=== PATIENT | male | born 1960 | race Caucasian/White ===

== ENCOUNTER 2021-12-22 06:30 | Day surgery (SDC) | payer BC, OTHER ==
[~2021-12-22] VITALS: Ht 177.8 cm; Wt 80.3 kg
[~2021-12-22 06:30] MED LIST: METF500 PO
--- NOTE | 2021-12-22 07:13 | NUR ---
History, Chart, Medications and Allergies reviewed before start of procedure. Patient confirms NPO status and agrees with scheduled surgery. Reports taking all of colon prep with clear results.
--- NOTE | 2021-12-22 07:18 | NUR ---
History, Chart, Medications and Allergies reviewed before start of procedure. Patient confirms NPO status and agrees with scheduled surgery. Patient States Post-Procedure ride home has been arranged with [facility].
--- NOTE | 2021-12-22 08:10 | NUR ---
12/22/21 0810 Enio Lai History, Chart, Medications and Allergies reviewed before start of procedure. Patient confirms NPO status and agrees with scheduled surgery. 3-LEAD EKG REVIEWED WITH PHYSICIAN PRIOR TO START OF PROCEDURE. MONITOR INTACT WITH CONTINUOUS PULSE OXIMETRY AND INTERMITTENT BP. PATIENT DETERMINED TO BE ASA APPROPRIATE FOR PROPOFOL SEDATION PRIOR TO START OF PROCEDURE BY DR. LOCO.
--- NOTE | 2021-12-22 09:35 | NUR ---
Discharge instructions reviewed with patient. Patient verbalizes understanding. Copy given to patient to take home. Patient States Post-Procedure ride home has been arranged. Ambulatory in [facility] Discharged via wheelchair to private car for ride home.
== END 2021-12-22 23:22 | disposition home or self-care (01) ==
LOC: ORSCMMR 06:30 → ORD 08:00 → ORSCMMR 08:00
PROVIDERS: Student in an Organized Health Care Education/Training Program
PROC: 0DBN8ZX Excision of Sigmoid Colon, Via Natural or Artificial Opening Endoscopic, Diagnostic (ICD-10-PCS; principal; 2021-12-22 08:00)
PROC: 0DBL8ZX Excision of Transverse Colon, Via Natural or Artificial Opening Endoscopic, Diagnostic (ICD-10-PCS; principal; 2021-12-22 08:00)
DX: Z12.11 Encounter for screening for malignant neoplasm of colon (principal); D12.3 Benign neoplasm of transverse colon; D12.5 Benign neoplasm of sigmoid colon; K64.4 Residual hemorrhoidal skin tags; E11.9 Type 2 diabetes mellitus without complications; Z87.891 Personal history of nicotine dependence; Z79.84 Long term (current) use of oral hypoglycemic drugs; Z79.899 Other long term (current) drug therapy
CPT/HCPCS: 82947; 88305; J2704; J7120

== ENCOUNTER 2023-08-09 08:38 | Day surgery (SDC) | payer SELFPAY ==
[~2023-08-09] VITALS: Ht 175.3 cm; Wt 92.1 kg
[~2023-08-09 08:38] MED LIST changes: -METF500 PO; +METF500C PO; +Prednisone50 MG PO; +Robaxin750 MG PO
[2023-08-09 10:17] VITALS: BP 129/84
== END 2023-08-09 10:30 | disposition home or self-care (01) ==
LOC: ORSCSDS 08:38
PROVIDERS: Student in an Organized Health Care Education/Training Program
PROC: 08RJ3JZ Replacement of Right Lens with Synthetic Substitute, Percutaneous Approach (ICD-10-PCS; principal; 2023-08-09 10:00)
DX: E11.36 Type 2 diabetes mellitus with diabetic cataract (principal); H25.11 Age-related nuclear cataract, right eye; E66.9 Obesity, unspecified; Z68.30 Body mass index [BMI] 30.0-30.9, adult; Z87.891 Personal history of nicotine dependence; Z79.84 Long term (current) use of oral hypoglycemic drugs; Z79.899 Other long term (current) drug therapy
CPT/HCPCS: 82947; J2250; J3010; J7040; V2632

== ENCOUNTER 2023-08-16 08:29 | Day surgery (SDC) | payer SELFPAY ==
[~2023-08-16] VITALS: Ht 177.8 cm; Wt 92.9 kg
--- NOTE | 2023-08-16 09:04 | NUR ---
08/16/23 0904 Delilah Olea AT 0901 JODIEET AT 0904
[2023-08-16 10:27] VITALS: BP 129/84
== END 2023-08-16 10:39 | disposition home or self-care (01) ==
LOC: ORSCSDS 08:29
PROVIDERS: Student in an Organized Health Care Education/Training Program
PROC: 08RK3JZ Replacement of Left Lens with Synthetic Substitute, Percutaneous Approach (ICD-10-PCS; principal; 2023-08-16 10:00)
DX: E11.36 Type 2 diabetes mellitus with diabetic cataract (principal); H25.12 Age-related nuclear cataract, left eye; Z96.1 Presence of intraocular lens; Z87.891 Personal history of nicotine dependence; Z79.84 Long term (current) use of oral hypoglycemic drugs; Z79.899 Other long term (current) drug therapy
CPT/HCPCS: 82947; J2250; J3010; J7040; V2632